=== PATIENT | male | born 1955 | race African-American/Black ===

== ENCOUNTER 2017-12-12 06:43 | Inpatient (IN) | payer OTHER ==
[~2017-12-12] VITALS: Ht 165.1 cm; Wt 85.8 kg
--- NOTE | 2017-12-12 06:50 | NUR ---
ENGINE MECHANIC NOTES RECEIVED PT YARA SCHMID [facility]IA [facility]. TRANSFERRED TO BED SAFELY. PT IS A/O X 2, VERBALLY RESPONSIVE. NO DISTRESS, NO SOB NOTED. RESPIRATION IS EVEN AND UNLABORED. IV SITE ON RIGHT HAND G # 20 INTACT AND PATENT, NO S/S OF INFILTRATION NOTED. ALL NEEDS ATTENDED AND MET. KEPT COMFORTABLE. SAFETY PRECAUTIONS OBSERVED. WILL ENDORSE TO NEXT SHIFT ACCORDINGLY FOR ALFONSO.
--- NOTE | 2017-12-12 07:06 | NUR ---
ADMISSION NOTES RECEIVED PATIENT IN THE BED A/O X2/3, WINDROWING SWOLLEN EYES BECAUSE OF FALL. PATIENT TELE MONITOR, SR- 78. PATIENT HAS NO ACUTE RESPIRATORY DISTRESS, NO SOB AT THIS TIME. V/S TAKEN BP-176/98, P-70, R-19, O2-97 O2-2LNC, T-98. PATIENT HAS NITRO PATCH ON LEFT UPPER CHEST. SKIN ASSESSMENT DONE PICTURE TAKEN. PATIENT BED REST. PATIENT USING URINAL. SEEN BY DR SCHULTZ. CALL LIGHT WITHIN TO REACH, CONTINUED MONITORING.
--- NOTE | 2017-12-12 07:30 | NUR ---
PT ON SR 70'S , INVERTED T WAVE ON TELE MONITOR. PT WITH NO C/O CHEST PAIN NOR PAIN OR DISCOMFORT AT THIS TIME, ENDORSED TO NEXT SHIFT ACCORDINGLY FOR ALFONSO.
[2017-12-12 08:00] VITALS: BP 176/98
[2017-12-12] MEDS ORDERED: LORAZEPAM INJ 2 MG/ML VIAL IV PRN (08:00)
[2017-12-12] MEDS ORDERED: Z GUARD REMEDY 2 OZ OINT TP PRN (08:00)
[2017-12-12] MEDS ORDERED: ACETAMINOPHEN 325 MG TABLET PO PRN (08:00)
[2017-12-12] MEDS ORDERED: ZOLPIDEM TARTRATE 5 MG TABLET PO PRN (08:00)
[2017-12-12] MEDS ORDERED: ONDANSETRON HCL/PF 4 MG/2 ML VIAL IVP PRN (08:00)
[2017-12-12 08:28] LABS: BASOPHILS % (AUTO) 0.4 % (0.0-2.0); EOSINOPHILS % (AUTO) 1.5 % (0.0-6.0); HEMATOCRIT 40 % (39-51); HEMOGLOBIN 12.6 g/dL (13.5-17.5); LYMPHOCYTES # (AUTO) 1.3 /CMM (0.8-4.8); LYMPHOCYTES % (AUTO) 15.2 % (20.0-44.0); MEAN CORPUSCULAR HGB CONC 31 g/dl (31.0-36.0); MEAN CORPUSCULAR VOLUME 90 fL (80-96); MONOCYTES % (AUTO) 11.1 % (2.0-12.0); NEUTROPHILS # (AUTO) 6.3 /CMM (1.8-8.9); NEUTROPHILS % (AUTO) 71.8 % (43.0-81.0); PLATELET COUNT (AUTO) 329 /CMM (150-450); RDW COEFFICIENT OF VARIATION 14.9 (11.5-15.0); RED BLOOD CELL COUNT(AUTO) 4.47 MIL/uL (4.5-6.0); WHITE BLOOD COUNT (AUTO) 8.8 K/uL (4.3-11.0)
[2017-12-12 09:04] LABS: ALBUMIN 3.5 g/dL (3.4-5.0); BILIRUBIN,TOTAL 0.8 mg/dL (0.2-1.0); CALCIUM, SERUM 8.3 mg/dL (8.5-10.1); CREATININE 1.2 mg/dL (0.6-1.3); MAGNESIUM 1.9 mg/dL (1.8-2.4); PHOSPHORUS 3.7 mg/dL (2.5-4.9); POTASSIUM 3.5 mmol/L (3.5-5.1); TOTAL PROTEIN, SERUM 7.4 g/dL (6.4-8.2)
[2017-12-12 09:09] LABS: TROPONIN I 0.018 ng/mL (0.00-0.056)
[2017-12-12] MEDS: IV NS 0.9% 1,000 ML IV PRN ×2 (09:28→21:25)
[2017-12-12] MEDS: HYDROCODONE/APAP 5/325MG 1 EACH TABLET PO PRN ×3 (09:29→20:13)
--- NOTE | 2017-12-12 09:29 | NUR ---
RN NOTES ADMINISTERED NARCO 5/325 MG PO PRN FOR FACE PAIN 09/29 [place] PATIENT REQUEST, V/S TAKEN BP-176/98, P-70. CONTINUED MONITORING.
[2017-12-12] MEDS ORDERED: Thiamine 100 MG in IV D5W 50 ML IV SCH (10:00)
[2017-12-12] MEDS: Folic acid 1 MG in IV D5W 50 ML IV SCH (11:19)
[2017-12-12 12:00] VITALS: BP 113/76
--- NOTE | 2017-12-12 14:50 | NUR ---
RN NOTES ADMINISTERED NARCO 5/325 FOR FACE PAIN 09/29 PER PATIENT REQUEST, V/S TAKEN BP=-113/76, P-100, CONTINUED MONITORING.
--- NOTE | 2017-12-12 15:40 | NUR ---
RN NOTES PATIENT RESTING IN THE BED NO ACUTE DISTRESS, CALL LIGHT WITHIN TO REACH, CONTINUED MONITORING.
[2017-12-12 16:00] VITALS: BP 173/107
--- NOTE | 2017-12-12 18:40 | NUR ---
RN NOTES PATIENT STABLE NO ACUTE RESPIRATORY DISTRESS, V/S STABLE, INFUSING NS AT 75 ML/HR INTACT, PATIENT USING URINAL. CALL LIGHT WITHIN TO REACH. CONTINUED MONITORING. ENDORSED ONCOMING NURSE FOR PLAN OF CARE.
--- NOTE | 2017-12-12 18:52 | NUR ---
Met with patient, seems very slow processing thoughts. Has hx of alcohol abuse, stated he lives with his brother and family in a single level dwelling/ mobile home. Prior to admission, he was walking with a cane and independent with adl's. According to patient, he legs are so weak to get up and moved. Will request PT eval prior dc. He plan to return home, his sister in law or brother will provide ride. Addendum: 12/12/17 at 1853 by BENIGNO VELEZ RN Amended: Links added.
--- NOTE | 2017-12-12 19:30 | NUR ---
MS ROSIE OPENING NOTES: RECEIVED PT ON 2LPM VIA NC AND IS IN SEMI-XIAO'S POSITION. PT IS ASLEEP AT THIS TIME BUT IS AROUSABLE TO TOUCH. PT HAS LACERATION ABOVE LEFT EYEBROW AND L SIDE OF FACE. KEPT CLEAN, AND DRY, AND OPEN TO AIR FOR NOW. PT HAS IV ON R HAND AND IS BEING INFUSED WITH IV NS AT 75ML/HR. CALL LIGHT WITHIN PT'S REACH. BED KEPT IN LOW, LOCKED POSITION, AND SIDE RAILS X 2UP. WILL CONTINUE TO MONITOR PT. Addendum: 12/13/17 at 0543 by BART ONEIL RN ALSO NOTED NITROBID PATCH ON CHEST.
[2017-12-12 20:00] VITALS: BP 166/88
--- NOTE | 2017-12-12 22:07 | NUR ---
MS RN NOTES: SPOKE WITH SERGO Ricardo INFORMED HER THAT BP IS 166/88 HR 85. GOT ORDER FOR AMLODIPINE 5MG PO DAILY AND TO START THAT NOW. ALSO GOT ORDER FOR CLONIDINE 0.1MG PO Q6HR PRN.
[2017-12-12] MEDS ORDERED: AMLODIPINE BESYLATE 5 MG TABLET PO SCH (22:30)
[2017-12-12] MEDS: CLONIDINE HCL 0.1 MG TABLET PO PRN (23:44)
[2017-12-13] VITALS (7 sets, daily range): BP systolic 141–170; BP diastolic 74–111
[2017-12-13] MEDS: HYDROCODONE/APAP 5/325MG 1 EACH TABLET PO PRN ×2 (00:31→20:55)
--- NOTE | 2017-12-13 07:31 | NUR ---
MS RN OPENING NOTES RECEIVED PATIENT IN STABLE CONDITION. IN NO APPARENT DISTRESS. BEDSIDE RAILS ARE UPX2. BED IS LOCKED AND LOWERED. CALL LIGHT IS WITHIN REACH. IV LINE IS INTACT AND PATENT. WILL CONTINUE TO MONITOR PATIENT.
[2017-12-13 07:45] LABS: BASOPHILS % (AUTO) 0.5 % (0.0-2.0); EOSINOPHILS % (AUTO) 2.1 % (0.0-6.0); HEMATOCRIT 39 % (39-51); HEMOGLOBIN 12.5 g/dL (13.5-17.5); LYMPHOCYTES # (AUTO) 1.6 /CMM (0.8-4.8); LYMPHOCYTES % (AUTO) 21.3 % (20.0-44.0); MEAN CORPUSCULAR HGB CONC 32 g/dl (31.0-36.0); MEAN CORPUSCULAR VOLUME 92 fL (80-96); MONOCYTES # (AUTO) 0.6 /CMM (0.1-1.30); MONOCYTES % (AUTO) 7.8 % (2.0-12.0); NEUTROPHILS # (AUTO) 5.3 /CMM (1.8-8.9); NEUTROPHILS % (AUTO) 68.3 % (43.0-81.0); PLATELET COUNT (AUTO) 312 /CMM (150-450); RED BLOOD CELL COUNT(AUTO) 4.23 MIL/uL (4.5-6.0); WHITE BLOOD COUNT (AUTO) 7.7 K/uL (4.3-11.0)
[2017-12-13 08:05] LABS: CALCIUM, SERUM 8.4 mg/dL (8.5-10.1); CREATININE 1.2 mg/dL (0.6-1.3); MAGNESIUM 1.9 mg/dL (1.8-2.4); POTASSIUM 3.4 mmol/L (3.5-5.1)
[2017-12-13] MEDS ORDERED: POTASSIUM CHLORIDE 20 MEQ TAB.PRT.SR PO ONE (08:30)
[2017-12-13] MEDS ORDERED: TDAP [DIPH/PERTUSSIS/TET] 0.5 ML VIAL IM ONE (09:00)
[2017-12-13] MEDS: AMLODIPINE BESYLATE 5 MG TABLET PO SCH (10:10)
[2017-12-13] MEDS: Folic acid 1 MG in IV D5W 50 ML IV SCH (10:13)
[2017-12-13] MEDS: hydrALAZINE HCL 50 MG TABLET PO SCH ×3 (10:13→16:38)
[2017-12-13] MEDS: CLONIDINE HCL 0.1 MG TABLET PO PRN (13:51)
[2017-12-13] MEDS ORDERED: IV NS 0.9% 250 ML IV ONE (15:54)
[2017-12-13] MEDS ORDERED: CT SWABBABLE VALVE TRANS SET 1 EA INFUS.SET MC ONE (15:54)
[2017-12-13] MEDS ORDERED: IOHEXOL-300 100 ML VIAL IV ONE (15:54)
--- NOTE | 2017-12-13 18:47 | NUR ---
MS RN CLOSING NOTES PATIENT IS IN STABLE CONDITION. IN NO APPARENT DISTRESS. BEDSIDE RAILS ARE UPX2. BED IS LOCKED AND LOWERED. CALL LIGHT IS WITHIN REACH. ALL NEEDS WERE MET. WILL ENDORSE CARE TO RESERVATIONS CLERK NURSE FOR ALFONSO.
--- NOTE | 2017-12-13 19:30 | NUR ---
RECEIVED PATIENT IN BED ASLEEP, EASILY AROUSABLE. AO X 2, ABLE TO MAKE NEEDS KNOWN. NO ACUTE DISTRESS NOTED. NO SIGNS OF PAIN NOTED. IV SITE PATENT, INTACT; FLUSHED. SAFETY REMINDERS GIVEN. ON LOW BED WITH BILATERAL UPPER SIDE RAILS UP. CALL DAHL WITHIN EASY REACH. WILL CONTINUE TO MONITOR.
--- NOTE | 2017-12-14 06:09 | NUR ---
PATIENT ASLEEP, EASILY AROUSABLE. RESPIRATIONS EVEN. NO SIGNS OF PAIN NOTED. NPO SINCE MIDNIGHT. NEEDS ATTENDED. KEPT CLEAN AND DRY. SAFETY PRECAUTIONS AND COMFORT MEASURES IN PLACE. WILL GIVE REPORT TO DAY SHIFT FOR CONTINUITY OF CARE.
[2017-12-14 08:00] VITALS: BP 178/114
[2017-12-14] MEDS: hydrALAZINE HCL 50 MG TABLET PO SCH ×3 (08:01→17:19)
[2017-12-14] MEDS: AMLODIPINE BESYLATE 5 MG TABLET PO SCH (08:02)
[2017-12-14] MEDS: CLONIDINE HCL 0.1 MG TABLET PO PRN (08:02)
[2017-12-14 08:32] VITALS: BP 178/119
--- NOTE | 2017-12-14 09:25 | NUR ---
dissheved, poor hygiene, when offered assistance to give him a bath, turned down. " fine the way i am.", hep lock on right hand out when first seen [facility] in , one attempt, signed the consent for stress test, and department made aware so he can be picked up
[2017-12-14] MEDS ORDERED: REGADENOSON 0.4 MG/5 ML DISP.SYRIN IVP ONE (10:00)
[2017-12-14 12:00] VITALS: BP 153/90
--- NOTE | 2017-12-14 12:18 | NUR ---
WOUND CARE CONSULT: PT PRESENTS WITH FACIAL WOUNDS WHICH ARE CRUSTED, PRESENT ON ADMISSION. PT ALSO NOTED TO HAVE PAINFUL BUNION ON LEFT FOOT, PRESENT ON ADMISSION. RECOMMEND SURGICAL/DPM CONSULTS. CURRENT BARRY SCORE IS 21. PT CONTINENT AT THIS TIME AND ABLE TO STAND AND REPOSITION HIMSELF. WILL SEE PRN. Addendum: 12/14/17 at 1220 by RUBIN NAQVI WNDNU Amended: Links added.
[2017-12-14] MEDS: FOLIC ACID 1 MG TABLET PO SCH (12:22)
[2017-12-14] MEDS: THIAMINE HCL 100 MG TABLET PO SCH (12:22)
[2017-12-14] MEDS: NEOMY SULF/BACITRAC ZN/POLY 15 GM TUBE TP SCH (14:30)
[2017-12-14] MEDS: HYDROCODONE/APAP 5/325MG 1 EACH TABLET PO PRN (15:21)
--- NOTE | 2017-12-14 15:22 | NUR ---
Social service consult requested by Med Surg JUDY Carrasquillo for alcohol abuse. Pt. is a 62 year old male who was admitted to [facility] for chest pain. SW met with pt. bedside. Pt. is alert and oriented x 3. Pt. appeared disheveled and didn't provide any eye contact during the assessment. Pt. had half of his face buried in the pillow. Pt. states he lives with his brother and [id number] at [address], [address], [place]. [place]. Pt's emergency contact is his [id number]-ufr Amelia Thompson . Pt. states he drinks beer daily but was not very forthcoming as to how much he drinks daily. Pt. states he has tried Crystal methamphetamines in the past but doesn't use anymore. Pt. states he smokes marijuana every 5 days. Pt. has no prior history of alcohol treatment programs. SW encouraged pt. to seek treatment, however pt. is not interested. Pt.states he will take the referrals. SW to give pt. alcohol treatment referrals prior to discharge. No other social service needs are requested at this time. SW is available, if needed.
--- NOTE | 2017-12-14 15:27 | NUR ---
left side of face got debrided by wound care team, Neosporin ointment not applied at this time. complained of pain when procedure done, one NORCO 5/325mg po given for pain.
[2017-12-14 16:17] VITALS: BP 146/82
[2017-12-14 17:56] VITALS: BP 146/82
--- NOTE | 2017-12-14 19:15 | NUR ---
RN Initial Notes Received patient sleeping in bed. Breathing even and unlabored. Not in any distress.Gauze on L eyebrow noted. As per AM RN, had it debrided today. IV in RAC g#20, H/L, no redness or swelling. Safety measures in place. Call ramirez within reach. Bed in low locked position. Patient stable as per morning shift RN. Will continue to monitor accordingly.
[2017-12-14 20:00] VITALS: BP 154/84
[2017-12-15] VITALS: BP 155/91
--- NOTE | 2017-12-15 07:30 | NUR ---
RN CLOSING NOTES Patient in bed, still asleep. Easily arousable. Not in any distress. No complaints of pain through the night. Safety measures in place. Call ramirez within reach. Bed in low, locked position. Refused to be changed as per CRUSHED STONE GRADER. Endorsed ALFONSO to oncoming RN
--- NOTE | 2017-12-15 07:35 | NUR ---
MS RN RECEIVED PATIENT ON BED, AWAKE,ALERT,ORIENTED X2,NOT IN ANY FORM OF DISTRESS, RESPIRATIONS EVEN AND UNLABORED,NO SOB NOTED, LUNGS ARE CLEAR,ABDOMEN SOFT,POSITIVE BOWEL SOUNDS, DENIES PAIN AT THIS TIME, WILL MONITOR PATIENT'S CONDITION,NOTED TO HAVE FACIAL WOUNDS, W/ NO DRESSING AT THIS TIME, WILL FIX LATER,ALL NEEDS ATTENDED.
[2017-12-15 08:00] VITALS: BP 179/107
--- NOTE | 2017-12-15 09:10 | NUR ---
MS VELEZ BREAKFAST SERVED,DUE MEDS GIVEN,TOLERATED WELL.
[2017-12-15] MEDS: THIAMINE HCL 100 MG TABLET PO SCH (09:32)
[2017-12-15] MEDS: AMLODIPINE BESYLATE 5 MG TABLET PO SCH (09:33)
[2017-12-15] MEDS: CLONIDINE HCL 0.1 MG TABLET PO PRN (09:34)
[2017-12-15] MEDS: ISOSORBIDE DINITRATE (20MG) 20 MG TABLET PO SCH ×2 (09:37→17:11)
[2017-12-15] MEDS: FOLIC ACID 1 MG TABLET PO SCH (09:38)
[2017-12-15] MEDS: NEOMY SULF/BACITRAC ZN/POLY 15 GM TUBE TP SCH (09:38)
[2017-12-15] MEDS ORDERED: POTASSIUM CHLORIDE 20 MEQ TAB.PRT.SR PO SCH (10:00)
[2017-12-15] MEDS: hydrALAZINE HCL 50 MG TABLET PO SCH ×2 (14:17→17:11)
[2017-12-15 16:00] VITALS: BP 146/84
--- NOTE | 2017-12-15 19:00 | NUR ---
ms rn on bed, no distress noted.all needs attended.
--- NOTE | 2017-12-15 19:59 | NUR ---
MS/RN OPENING NOTES PATIENT IN BED, AWAKE, RESTING COMFORTABLY IN BED, RESPIRATIONS EVEN AND UNLABORED, JHONNY ORDER PATIENT TO BE DISCHARGE TO HOME, FAMILY RESPONSIIBLE GREEN PARTY WAS CONTACTED LEFT MESSAGE TO VICENTE MCCAIN AT , TO FOLLOW UP REFERRAL FOR ALCOHOL TREATMENT REFERAL BY CASE MANAGEMENT. PATIENT TO BE DISCHARGE TO HOME. CHARGE NURSE AWARE, WAS INFORM AND WILL F/U PLAN OF DC ONCE DC TO HOME WILL FINALIZE.
[2017-12-15 20:00] VITALS: BP 119/60
--- NOTE | 2017-12-15 21:09 | NUR ---
ms/rn notes PATIENT WAS INFORMED ABOUT THE DISCHARGE ORDER TO HOME AND INFORMED THAT DAUGHTER IN LAW VICENTE WAS CONTACTED BUT LEFT MESSAGE AND AWAITING FOR RETURN CALL. WILL FOLLOW UP AGAIN FOR D/C.
--- NOTE | 2017-12-16 06:41 | NUR ---
314-2 MS/RN NOTES PATIENT IN BED, ABLE TO RESPOND WITH SIMPLE ANSWERS, INFORMED ABOUT DISCHARGE TO HOME PER MD, SKIN WARM TO TOUCH, SAFETY MEASURED PROVIDED, CALL LIGHTS WITHIN REACH, PROVIDED FLUIDS. WILL ENDORSE TO AM RN FOR ALFONSO.
--- NOTE | 2017-12-16 07:00 | NUR ---
MS RN OPENING NOTE RECEIVED PT IN BED, ALERT AND ORIENTED X3. PT DENIES N/V, CHEST PAIN, SOB AT THIS TIME. BREATHING IS EVEN AND UNLABORED ON ROOM AIR. R HAND #20G IV IS SALINE LOCKED, CLEAN, DRY, AND INTACT. PT C/O OF GENERALIZED PAIN 8/ THAT IS ACHING. WILL ADMINISTER PAIN MEDICATION ORDERED. PLANS FOR POSSIBLE D/C HOME LATER TONIGHT. BED IS LOCKED AND IN LOWEST POSITION, SIDE RAILS UP X2, CALL LIGHT IS WITHIN REACH. WILL CONTINUE TO MONITOR.
[2017-12-16 08:00] VITALS: BP_SYST 122; BP_SYST 187; BP_DIAS 77; BP_DIAS 99
[2017-12-16] MEDS: HYDROCODONE/APAP 5/325MG 1 EACH TABLET PO PRN (08:29)
[2017-12-16] MEDS: THIAMINE HCL 100 MG TABLET PO SCH (08:29)
[2017-12-16] MEDS: ISOSORBIDE DINITRATE (20MG) 20 MG TABLET PO SCH ×2 (08:30→17:03)
[2017-12-16] MEDS: hydrALAZINE HCL 50 MG TABLET PO SCH ×3 (08:30→17:04)
[2017-12-16] MEDS: FOLIC ACID 1 MG TABLET PO SCH (08:30)
[2017-12-16] MEDS: AMLODIPINE BESYLATE 5 MG TABLET PO SCH (08:30)
[2017-12-16] MEDS: NEOMY SULF/BACITRAC ZN/POLY 15 GM TUBE TP SCH (08:50)
--- NOTE | 2017-12-16 09:39 | NUR ---
JUSTIN was informed by Med Surg CRGurvinder Westbrook that the RN in the evening tried to call pt's [id number]-mj-ayf but there was no response. JUSTIN contacted pt's wtezqr-on-pxl Amelia who requested for SW to speak to pt's brother Steve instead. JUSTIN spoke to Steve inquiring if pt. can come back to live with him. Steve confirmed that pt. can come back, however he will not be home until 8PM and to send pt. then. Steve also informed SW that pt. was living with them but hasn't for the past three months but he is welcome to come back to stay with him. Steve stated that pt. has not paid the rent for the past three months. No other social service needs are requested at this time. SW is available, if needed. JUSTIN updated binder caser Clarice Eagle and Med Surg JUDY Westbrook with the discharge plan. Pt. to be discharge via taxi to [address], [place]. [place] at 8PM.
[2017-12-16 10:00] VITALS: BP 122/77
[2017-12-16 16:00] VITALS: BP 153/78
--- NOTE | 2017-12-16 18:27 | NUR ---
MS RN CLOSING NOTE PT SITTING UP IN BED, ALERT AND ORIENTED X3. DENIES N/V, CHEST PAIN, SOB AT THIS TIME. R HAND #20G IV IS SALINE LOCKED, CLEAN, DRY, AND INTACT. PT IS PENDING D/C TONIGHT AT 8PM TO SISTER VICENTE'S HOUSE VIA TAXI. TAXI VOUCHER PREPARED AND PT INFORMED. PT IS MEDICALLY STABLE, VS WNL. DISCHARGE PAPERWORK, DOCTORS PRESCRIPTION, AND INSTRUCTION PROVIDE PER PROTOCOL. BELONGINGS SHEET SIGNED AND PLACED IN CHART, DISCHARGE PHOTOS TAKEN AND PLACED IN CHART. INFORMED PT TO RETURN TO THE NEAREST ER OR CALL 911 FOR ANY CHEST PAIN OR SOB AND TO FOLLOW UP WITH PRIMARY CARE PROVIDER. KENNEL OPERATOR RN TO PROVIDE TAXI VOUCHER AND REMOVE PERIPHERAL IV. WILL ENDORSE TO KENNEL OPERATOR RN FOR CONTINUITY OF CARE.
[2017-12-16 19:00] VITALS: BP 143/90
[2017-12-16 19:30] VITALS: BP 150/70
--- NOTE | 2017-12-16 19:30 | NUR ---
MS/RN OPENING NOTES RECEIVED PATIENT IN BED, AWAKE, ALERT, PROVIDED DISCHARGE INSTRUCTIONS PATIENT WILL BE DISCHARGE TO HOME. RECEIVED ENDORSEMENT FROM AM RN FOR ALFONSO AND FAMILY WAS MADE AWARE THAT PATIENT WILL BE SENT HOME VIA TAXI ON TAXI VOUCHER, PLASTIC BOAT PATCHER WAS GIVEN COPY, VOUCHER WAS HANDED TO PATIENT FOR HELP DESK SPECIALIST WITH VALUE OF 24 PER OPERTAOR, IV SITE REMOVED ON RIGHT FOREARM, NO PAIN VERBALIZED, ABLE TO AMBULATE AND DRESS TO CIVILIAN CLOTHING,
--- NOTE | 2017-12-16 20:00 | NUR ---
MS/RN NOTES PATIENT WAS WHEELED ON W/C FOR TAXI LEHR LOADER AT EMERGENCY ROOM SITE PATIENT ALERT, ORIENTED PROVIDED PROPER D/C INSTRUCTION , INFORMED PUBLIC SAFETY OFFICER THAT FAMILY IS WAITING FOR PATIENT AT THE ADDRESS OF HOME.
[2017-12-16 20:30] VITALS: BP 143/90
== END 2017-12-16 08:00 | disposition home or self-care (01) | DRG 951 ==
LOC: TELE 06:43 → MED 15:40
PROVIDERS: ADMIT Internal Medicine; ATTEND Internal Medicine
DX: F10.129 Alcohol abuse with intoxication, unspecified (principal); G92 Toxic encephalopathy; S01.112A Laceration without foreign body of left eyelid and periocular area, initial encounter; I10 Essential (primary) hypertension; I16.0 Hypertensive urgency; K21.9 Gastro-esophageal reflux disease without esophagitis; H05.012 Cellulitis of left orbit; X58.XXXA Exposure to other specified factors, initial encounter; Y92.9 Unspecified place or not applicable; E87.6 Hypokalemia; Z87.891 Personal history of nicotine dependence; I11.9 Hypertensive heart disease without heart failure; L03.211 Cellulitis of face; M20.10 Hallux valgus (acquired), unspecified foot; M21.611 Bunion of right foot; M21.612 Bunion of left foot; M77.30 Calcaneal spur, unspecified foot; E66.9 Obesity, unspecified
CPT/HCPCS: 36415; 70481-TC; 73630-TC; 80048-TC; 80053-TC; 80061-TC; 83735-TC; 84100-TC; 84484-TC; 85025-TC; 87081-TC; 90715; 93307-TC; 94799-TC; A6402; A6403; A9502; J2785; J3411; J3490; J7030; J7050; J7060; Q9967; Z7610